=== PATIENT | male | born 1975 | race Caucasian/White ===

== ENCOUNTER 2024-02-25 19:44 | Emergency (ER) | payer OTHER, SELFPAY ==
[2024-02-25 19:50] VITALS: BP 111/84
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
== END 2024-02-25 20:58 | disposition home or self-care (01) ==
LOC: EMR 19:44
PROVIDERS: EMERGENCY PHYSICIAN Emergency Medicine; FAMILY PHYSICIAN Family Medicine
DX: S29.012A Strain of muscle and tendon of back wall of thorax, initial encounter (principal); V89.2XXA Person injured in unspecified motor-vehicle accident, traffic, initial encounter; Y92.410 Unspecified street and highway as the place of occurrence of the external cause
CPT/HCPCS: 99282

== ENCOUNTER 2024-10-08 11:44 | Emergency (ER) | payer OTHER, SELFPAY ==
[2024-10-08 11:47] VITALS: BP 87/53
[2024-10-08 12:01] VITALS: BP 110/60
--- NOTE | 2024-10-08 12:13 | ED.MUSCINJ ---
HPI-Injury
General
Chief Complaint: Musculo-Skeletal Complaint
Source: patient
Exam Limitations: none
Time Seen by Provider: 10/08/24 12:03
History of Present Illness-Injury
Initial Injury comments:
49-year-old [id number] male presents complaining of left elbow pain. He was trying to tear up a piece of subfloor in his house and he felt a pop in his left bicep area towards his elbow. Since then he has noticed a deformity in his bicep
muscle and is having trouble bending his arm. No other complaints at this time.
Phy Exam
Physical Exam
Physical Exam:
General: Well-appearing male no acute respiratory distress musculoskeletal exam:
Left elbow tender over the medial elbow. The distal biceps tendon is difficult to palpate. There is a deformity of the bicep muscle. He has trouble supinating the forearm
Vascular: 2+ dp pulse left wrist
Injury Course
Orders/Labs/Results
Orders:
Orders
10/08/24 12:10
Sling Left-Treatment ONCE
MDM/Problems Addressed
Differential Diagnosis Includes:
Popping sensation trying to lift a piece of floor. There is deformity to the bicep and possible injury to the distal bicep tendon. Patient will be placed in a sling. X-ray is not indicated. Recommend he follow-up with orthopedics for possible
bicep tendon tear
*Pulse Oximetry
SaO2: 97
Oxygen Mode of Delivery: Room air
Patient hypoxic: no
*Critical Care Note
Total Time (30-74mins, 75-104mins- exclusive of procedures): Not Applicable
ED Attending Note
-
Portions of this chart may have been created with voice recognition software.� Occasional wrong word or��sound alike� substitutions may have occurred due to the inherent limitations of voice recognition software.
Discharge Plan
Departure
Patient Disposition: Home (Routine Discharge)
Date of Disposition: 10/08/24
Time of Disposition: 12:18
Patient with high blood pressure during this ER visit?: No
Discharge Problem:
Injury of tendon of biceps
Instructions: Muscle and Bone Pain (DC)
Referrals:
Louis Fuentes MD [Active, Orthopedics]
Activity Restrictions/Additional Instructions:
Use sling. Ice for swelling. You may take Tylenol or ibuprofen for pain. Follow-up with orthopedics for evaluation for possible bicep tendon injury
Interventions
Interventions:
*Risk Screen - Suicide Last Done: 10/08/24 12:01
*General Assessment Last Done: 10/08/24 12:01
*Neglect/Abuse Screening Last Done: 10/08/24 12:01
*ED COVID-19 Vaccine History Last Done: 10/08/24 12:01
ED-Musculoskeletal Assessment Last Done: 10/08/24 12:01
Discharge Date and Time
Print Language: SINHALA
== END 2024-10-08 13:04 | disposition home or self-care (01) ==
LOC: EMR 11:44
PROVIDERS: EMERGENCY PHYSICIAN Emergency Medicine
DX: S46.202A Unspecified injury of muscle, fascia and tendon of other parts of biceps, left arm, initial encounter (principal); M25.522 Pain in left elbow; X50.0XXA Overexertion from strenuous movement or load, initial encounter; Y93.89 Activity, other specified
CPT/HCPCS: 99282

== ENCOUNTER 2024-10-31 06:14 | Day surgery (SDC) | payer OTHER, SELFPAY ==
[2024-10-27 08:57] LABS: Hematocrit 42.1 % (39.0-52.0); Hemoglobin 14.5 g/dL (13.0-18.0); Mean Corp Hgb Conc. 34.4 g/dL (33.0-37.0); Mean Corpuscular Volume 82.2 fL (80.0-94.0); Nucleated Red Blood Cells % 0 % (-); Platelet Count 252 10^3/uL (130-400); Red Cell Dist. Width 12.6 % (11.5-14.5)
[2024-10-27 09:49] LABS: Blood Urea Nitrogen 11 mg/dl (9-20); Calcium 9.7 mg/dl (8.4-10.2); Carbon Dioxide 26 mmol/L (22-30); Chloride 106 mmol/L (98-107); Glucose 89 mg/dl (70-99); Potassium 4.6 mmol/L (3.5-5.1); Sodium 140 mmol/L (135-145); eGFR > 60.00
[2024-10-27 14:19] VITALS: BMI 30.9
--- NOTE | 2024-10-27 17:31 | PTCARENOTE ---
Abnormal ECG on 10/27/2024, Dr. Osorio notified. No further orders at this time.
[2024-10-31] VITALS (9 sets, daily range): BP systolic 106–158; BP diastolic 74–108; BMI 30.9
[2024-10-31] MEDS: NORMOSOL-R/PLASMALYTE-A 1000 IV (12:47)
[2024-10-31] MEDS: CELEBREX 200 MG PO (12:47)
[2024-10-31] MEDS: TYLENOL 1000 MG PO (12:47)
[2024-10-31] MEDS: SUBLIMAZE 25 MCG IV ×2 (15:28→15:38)
== END 2024-10-31 17:01 | disposition home or self-care (01) ==
LOC: SDS 06:14
PROVIDERS: ATTENDING PHYSICIAN Orthopaedic Surgery; FAMILY PHYSICIAN Family Medicine
DX: S46.212A Strain of muscle, fascia and tendon of other parts of biceps, left arm, initial encounter (principal); X58.XXXA Exposure to other specified factors, initial encounter
CPT/HCPCS: 24342; 80048; 85025; 93005; C1713